=== PATIENT | female | born 1970 | race Two or more races ===

== ENCOUNTER 2025-01-29 23:54 | Emergency (ER) | payer OTHER ==
[~2025-01-29] VITALS: Ht 162.6 cm; Wt 63.5 kg
[2025-01-30] MEDS ORDERED: ESCITALOPRA5 MG/5 ML (00:30)
[2025-01-30] MEDS ORDERED: ACETAMINOPHEN 500 MG GEL..CAP PO STA (03:20)
[2025-01-30] MEDS ORDERED: PROMETHAZINE HCL 50 MG/ML AMPUL IM STA (03:20)
[2025-01-30] MEDS ORDERED: FAMOTIDINE/PF 20 MG/2 ML VIAL IV PUSH STA (03:20)
[2025-01-30] MEDS ORDERED: 0.9 % SODIUM CHLORIDE 1,000 ML IV ONE (03:30)
[2025-01-30 03:59] LABS: BASO % 0.4 % (0.1-1.2); EOS # 0.01 (0.04-0.54); EOS % 0.1 % (0.7-7.0); LYMPH # 0.77 (1.18-3.74); LYMPH % 8.2 % (19.3-53.1); MEAN PLATELET VOLUME 10.20 fl (9.4-12.4); MONO # 0.73 (0.24-0.82); MONO % 7.7 % (4.7-12.5); NEUT # 7.83 (1.56-6.13); NEUT % 83.1 % (34.0-71.1); RED CELL DISTRIBUTION WIDTH 13.9 % (11.6-14.4)
[2025-01-30 04:31] LABS: ALT/SGPT 64 U/L (12-78); AST/SGOT 41 U/L (15-37); BILIRUBIN TOTAL 0.40 mg/dL (0.3-1.2); BUN CREA RATIO 14 (7.0-25.0); CREATININE SERUM 0.94 mg/dL (0.55-1.02); GFR 61.60; GLOBULINA 3.4 G/DL (2.4-3.5); GLUCOSE FASTING 114 mg/dL (65-100); OSMOLALITY SERUM 275 MOSM/KG (275-295)
[2025-01-30 05:03] LABS: BILIRUBIN,CONJUGATED < 0.10 mg/dL (0.0-0.2)
[2025-01-30 05:04] LABS: COVID-19 AG NEGATIVE (NEGATIVE)
[2025-01-30 07:31] LABS: URINE APPEARANCE Clear; URINE BILIRRUBIN Negative (NEGATIVE); URINE BLOOD Trace; URINE COLOR Yellow; URINE GLUCOSE Negative (NEGATIVE); URINE KETONE Negative (NEGATIVE); URINE LEUKOCYTE Moderate; URINE NITRATE Negative; URINE PROTEIN Negative (NEGATIVE); URINE UROBILINOGEN 0.2 E.U./dl
[2025-01-30 07:36] LABS: URINE BACTERIA 426.0 uL (0.0-1933); URINE EPITHELIAL CELLS 9.2 uL (0.0-38.8); URINE RBC 40.7 uL (0.0-20.8); URINE WBC 54.7 uL (0.0-23.2)
[2025-01-30 08:03] LABS: URINE CAST 0.00 uL (0.0-1.40)
[2025-01-30] MEDS ORDERED: CEPHALEXIN500 MG PO (08:26)
[2025-01-30] MEDS ORDERED: PEPCID20 MG PO (08:26)
[2025-01-30] MEDS ORDERED: CEFTRIAXONE SODIUM 1,000 MG VIAL IV ONE (08:30)
== END 2025-01-30 08:51 | disposition home or self-care (01) ==
LOC: ER 23:54
PROVIDERS: General Practice
DX: N39.0 Urinary tract infection, site not specified (principal); R51.9 Headache, unspecified; R11.10 Vomiting, unspecified; Z87.09 Personal history of other diseases of the respiratory system; Z20.822 Contact with and (suspected) exposure to COVID-19